=== PATIENT | male | born 1975 | race Caucasian/White ===

== ENCOUNTER 2021-10-28 20:22 | Emergency (ER) | payer OTHER ==
[~2021-10-28] VITALS: Ht 172.7 cm; Wt 111.1 kg
--- NOTE | 2021-10-28 21:45 | NUR ---
BIBS C/O L WLBOW PAIN S/P FALL AT GYM. - HEAD TRAUMA -KO. NO GROSS TRAUMA OR DEFORMITIES TO EXTREMITY NOTED. PT CHANGED INTO A GOWN AND PLACED ON MONITOR AND ALL V/S STABLE.
[2021-10-28] MEDS ORDERED: MORPHINE SULFATE INJ 4 MG/ML DISP.SYRIN ONE (21:59)
[2021-10-28] MEDS ORDERED: MORPHINE SULFATE INJ 2 MG/ML DISP.SYRIN IM ONE (22:00)
--- NOTE | 2021-10-28 23:58 | NUR ---
QING PAGED FOR FOLLOW UP ON XRAY READINGS.
--- NOTE | 2021-10-29 01:04 | NUR ---
Paged ortho occupational health specialist, Kelvin. MARTINEZ.
--- NOTE | 2021-10-29 01:40 | NUR ---
20G IV LINE ESTABLISHED AT . BLOOD DRAWN AND SENT TO LAB.
[2021-10-29 02:07] LABS: BASOPHILS # (AUTO) 0.1 K/uL (0.0-0.2); BASOPHILS % (AUTO) 0.6 % (0.0-2.0); EOSINOPHILS % (AUTO) 0.6 % (0.0-6.0); HEMATOCRIT 42 % (39-51); HEMOGLOBIN 14.5 g/dL (13.5-17.5); LYMPHOCYTES # (AUTO) 1.5 K/uL (0.8-4.8); LYMPHOCYTES % (AUTO) 14.8 % (20.0-44.0); MEAN CORPUSCULAR HGB CONC 35 g/dl (31.0-36.0); MEAN CORPUSCULAR VOLUME 96 fL (80-96); MONOCYTES # (AUTO) 0.6 K/uL (0.1-1.30); MONOCYTES % (AUTO) 5.8 % (2.0-12.0); NEUTROPHILS # (AUTO) 8.2 K/uL (1.8-8.9); NEUTROPHILS % (AUTO) 78.2 % (43.0-81.0); PLATELET COUNT (AUTO) 219 K/uL (150-450); RED BLOOD CELL COUNT(AUTO) 4.35 MIL/uL (4.5-6.0); WHITE BLOOD COUNT (AUTO) 10.5 K/uL (4.3-11.0)
[2021-10-29 02:27] LABS: CALCIUM, SERUM 8.5 mg/dL (8.5-10.1); POTASSIUM 4.6 mmol/L (3.5-5.1)
[2021-10-29] MEDS ORDERED: MORPHINE SULFATE INJ 4 MG/ML DISP.SYRIN ONE (03:08)
[2021-10-29] MEDS ORDERED: MORPHINE SULFATE INJ 2 MG/ML DISP.SYRIN IV ONE (03:30)
--- NOTE | 2021-10-29 04:06 | NUR ---
[id number]
--- NOTE | 2021-10-29 04:06 | NUR ---
PT ACCEPTED AT [facility] UNDER THE CARE OF DR. MARES. CALL [phone] FOR REPORT. GOING TO [facility]. ETA AT [phone]
--- NOTE | 2021-10-29 04:16 | NUR ---
REPORT GIVEN TO [facility]
--- NOTE | 2021-10-29 04:32 | NUR ---
[facility] AT BED SIDE TO ESTHETICIAN/OWNER THE PT
[2021-10-29 04:40] VITALS: BP 116/77
--- NOTE | 2021-10-29 04:50 | NUR ---
PT TRANSPORTED TO [facility]IA [facility]. PT PAPERWORK TRANSPORTED WITH STRATEGY ANALYST. V/S STABLE AT TIME OF TRANSFER.
== END 2021-10-29 04:59 | disposition short-term general hospital (02) ==
LOC: ER 20:22
DX: S52.122A Displaced fracture of head of left radius, initial encounter for closed fracture (principal); W01.0XXA Fall on same level from slipping, tripping and stumbling without subsequent striking against object, initial encounter; Y93.89 Activity, other specified; Y92.39 Other specified sports and athletic area as the place of occurrence of the external cause; Z88.6 Allergy status to analgesic agent; R00.0 Tachycardia, unspecified; Z20.822 Contact with and (suspected) exposure to COVID-19
CPT/HCPCS: 36415; 71045; 73090; 73110; 73130; 80048; 85025; 85730; 87426; 93005; 96372; 96374; 99285; C9803; J2270 ×2